=== PATIENT | female | born 1965 | race Hispanic/Latino ===

== ENCOUNTER 2016-10-07 14:28 | Emergency (ER) | payer OTHER ==
[~2016-10-07] VITALS: Ht 144.8 cm; Wt 113.6 kg
[~2016-10-07 14:28] MED LIST: Ibuprofen PO; NYST1POW23 MC; ibuprofen
[2016-10-07 14:45] VITALS: BP 138/66; PULSE 75; RESP 18; O2SAT 98
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
[2016-10-07] MEDS ORDERED: 0.9% Sodium Chloride 1,000 ML IV ONE (15:18)
[2016-10-07] MEDS ORDERED: oxyCODONE-Acetamin 10-325 mg Tablet PO ONE (15:20)
[2016-10-07] MEDS ORDERED: HYDROmorphone 1 mg/mL Inj IVPUSH PRN (15:20)
[2016-10-07] MEDS ORDERED: Ondansetron 2 mg/mL 2 mL Inj IVPUSH PRN (15:20)
[2016-10-07 16:38] LABS: BASOPHILS % (AUTO) 0.2 % (0-3); EOSINOPHILS % (AUTO) 1.7 % (0-5); MONOCYTES % (AUTO) 7.1 % (4-12); Mean Corpuscular Hemoglobin 30.7 pg (27.0-35.0); Mean Corpuscular Volume 93.1 fL (81-100); NEUTROPHILS % (AUTO) 67.6 % (40-74); Platelet Count 254 bil/L (150-400)
[2016-10-07 16:53] VITALS: BP 111/55; PULSE 70; RESP 18; O2SAT 98
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
[2016-10-07 18:46] VITALS: BP 111/55; PULSE 70; RESP 18; O2SAT 98
== END 2016-10-07 18:47 | disposition home or self-care (01) ==
LOC: EDUNIT# 14:28 → SED 14:28 → EDBD 14:28 → SED 18:47
DX: S30.1XXA Contusion of abdominal wall, initial encounter (principal); S20.219A Contusion of unspecified front wall of thorax, initial encounter; V43.62XA Car passenger injured in collision with other type car in traffic accident, initial encounter; Y93.89 Activity, other specified; Y92.410 Unspecified street and highway as the place of occurrence of the external cause; Y99.8 Other external cause status
CPT/HCPCS: 36415; 71260; 74177; 80053; 81002; 81025; 85025; 93005; 96361; 96374; 99285; J1885; J7030; Q9967